=== PATIENT | male | born 1980 | race Caucasian/White ===

== ENCOUNTER 2018-12-20 19:00 | Emergency (ER) | payer OTHER ==
[~2018-12-20] VITALS: Ht 165.1 cm; Wt 68.0 kg
== END 2018-12-20 23:44 | disposition home or self-care (01) ==
LOC: ER 19:00
DX: J45.998 Other asthma (principal)

== ENCOUNTER 2019-01-26 19:44 | Emergency (ER) | payer OTHER ==
[~2019-01-26] VITALS: Ht 157.5 cm; Wt 65.8 kg
== END 2019-01-26 22:18 | disposition home or self-care (01) ==
LOC: ER 19:44
DX: H83.03 Labyrinthitis, bilateral (principal); R42 Dizziness and giddiness